=== PATIENT | female | born 1940 | race Caucasian/White ===

== ENCOUNTER → 2017-11-13 | Outpatient (CLI) | payer MEDICARE, OTHER | LOC: M.RAD 10:23 | DX: Z12.31 Encounter for screening mammogram for malignant neoplasm of breast (principal) ==

== ENCOUNTER → 2018-11-14 | Outpatient (CLI) | payer MEDICARE, OTHER | LOC: M.RAD 14:10 | DX: Z12.31 Encounter for screening mammogram for malignant neoplasm of breast (principal) ==

== ENCOUNTER 2019-11-14 15:18 | Emergency (ER) | payer MEDICARE, OTHER ==
[~2019-11-14] VITALS: Ht 162.6 cm; Wt 77.6 kg
[2019-11-14] MEDS ORDERED: ASA81BEC PO (17:42)
[2019-11-14 17:50] LABS: CALCIUM 8.5 mg/dL (8.5-10.1); CREATININE 1.1 mg/dL (0.6-1.3); POTASSIUM 3.7 mmol/L (3.5-5.1)
[2019-11-14] MEDS ORDERED: VICTOZA0.6 MG/0.1 SUBQ (17:51)
[2019-11-14] MEDS ORDERED: METFORMIN HCL500 M3 PO (17:51)
[2019-11-14] MEDS ORDERED: ZESTRIL20 MG PO (17:52)
[2019-11-14] MEDS ORDERED: METOPROLOL SUC100 MG PO (17:52)
[2019-11-14] MEDS ORDERED: ESTRADIOL 1 MG T1 M1 PO (17:53)
[2019-11-14] MEDS ORDERED: ROSUVASTATIN CA20 MG PO (17:53)
[2019-11-14 17:59] LABS: ALBUMIN 3.4 g/dL (3.4-5.0); TOTAL BILIRUBIN 0.7 mg/dL (<0.1-1.0); TOTAL PROTEIN 7.3 g/dL (6.4-8.2)
[2019-11-14 18:33] LABS: ABSOLUTE LYMPHOCYTES 0.8 thou/uL (0.8-5.3); ABSOLUTE MONOCYTES 0.5 thou/uL (0.0-1.2); ABSOLUTE NEUTROPHILS 5.1 thou/uL (1.6-8.1); BASOPHILS 0.3 %; HEMATOCRIT 37.3 % (37.0-47.0); HEMOGLOBIN 12.7 gm/dL (12.0-15.0); MCH 28.1 pg (26.0-34.0); MCV 82.8 fL (80.0-100.0); MONOCYTES 7.7 %; MPV 6.8 fl. (7.2-11.1); NUCLEATED RBCS 0 /100WBC; PLATELET COUNT* 155 thou/uL (150-400); RBC 4.51 mil/uL (4.20-5.00); RDW-CV 13.5 % (10.5-14.5); WBC 6.4 thou/uL (4.0-11.0)
[2019-11-14] MEDS ORDERED: ZPAK PO (21:04)
[2019-11-14] MEDS ORDERED: PREDNISONE 20 M20 MG PO (21:04)
[2019-11-14] MEDS ORDERED: ONDANSETRON HCL4 M2 PO (21:04)
[2019-11-14] MEDS ORDERED: VENTOLIN HFA 1818 GM INH (21:04)
[2019-11-14] MEDS ORDERED: LOPERAMIDE2 MG PO (21:04)
[2019-11-14 22:15] VITALS: BP 168/75
--- NOTE | 2019-11-16 10:24 | EKG ---
[place] [address] ELECTROCARDIOGRAM REPORT Name: SANIYAMCKENNA Skye Room: [facility]#: [id number] Admission: 11/14/19 Attend Phys: Discharge: 11/14/19 Date of : 42 Date of Service: 11/14/19 1708 Report #: [id number] THIS REPORT FOR: //name// [facility] ED Test Date: 2019-11-14 Test Time: 17:08:58 Pat Name: MCKENNA KOTHARI Department: Room: Gender: [employer] Maker: : 1940 Requested By: Sammi Diaz Order Number: [id number] MD: Tristin Lozano Measurements Intervals [place] Rate: 80 P: 51 IN: 154 QRS: 260 QRSD: 148 T: 87 QT: 429 QTc: 495 Interpretive Statements Atrial-sensed ventricular-paced rhythm No further analysis attempted due to paced rhythm No previous ECG available for comparison Electronically Signed On 11-16-2019 10:24:09 CDT by Tristin Lozano [email or web address] <ELECTRONICALLY SIGNED> By: Tristin Lozano MD, [facility] 11/16/19 1024 1708 1708 Tristin Lozano MD, [facility] /EPI
== END 2019-11-14 22:15 | disposition home or self-care (01) ==
LOC: M.ERS 15:18
PROVIDERS: Nurse Practitioner Family
DX: U07.1 COVID-19 (principal); R19.7 Diarrhea, unspecified; E78.5 Hyperlipidemia, unspecified; I10 Essential (primary) hypertension; E11.9 Type 2 diabetes mellitus without complications

== ENCOUNTER → 2019-11-27 | Outpatient (CLI) | payer MEDICARE, OTHER ==
[~2019-11-27] MED LIST: ASA81BEC PO; ESTRADIOL 1 MG T1 M1 PO; LOPERAMIDE2 MG PO; METFORMIN HCL500 M3 PO; METOPROLOL SUC100 MG PO; ONDANSETRON HCL4 M2 PO; PREDNISONE 20 M20 MG PO; ROSUVASTATIN CA20 MG PO; VENTOLIN HFA 1818 GM INH; VICTOZA0.6 MG/0.1 SUBQ; ZESTRIL20 MG PO; ZPAK PO
== END ==
LOC: M.RAD 14:37
PROVIDERS: ATTEND Family Medicine
DX: Z12.31 Encounter for screening mammogram for malignant neoplasm of breast (principal); N64.89 Other specified disorders of breast

== ENCOUNTER → 2020-11-29 | Outpatient (CLI) | payer MEDICARE, OTHER | LOC: M.RAD 12:36 | PROVIDERS: ATTEND Family Medicine | DX: Z12.31 Encounter for screening mammogram for malignant neoplasm of breast (principal) ==